=== PATIENT | male | born 1950 | race Caucasian/White ===

== ENCOUNTER 2020-10-27 10:32 | Emergency (ER) | payer BC, OTHER ==
--- OUTSIDE RECORDS SUMMARY | 2020-10-27 10:35 | XMS REPORT | Continuity of Care Document ---
:1950 Author Organization [facility] t Address [address] [place] [address] Dr. Corbett [address] [place] [id number] Care Team Providers Name Role Phone Lizz Rodas Attending Clinician David Trent MD Attending Clinician Problems This patient has no known problems. Allergies, Adverse Reactions, Alerts This patient has no known allergies or adverse reactions. Medications This patient has no known medications. Procedures This patient has no known procedures. Encounters Start End Encounter Admission Attending Care Care Encounter Source Date/Time Date/Time Type Type Clinicians Facility Department ID 2020-10-24 2020-10-24 Telephone BOAZ Price [id number] 00:00:00 00:00:00 [facility] [id number] Surgical [id number] Specialti [id number] es 198 [place] 2020-10-23 2020-10-23 [place] [facility] [id number] 00:00:00 00:00:00 Aaron Hernandez [facility] [id number] Surgical [id number] Specialti [id number] es 198 [place] 2020-10-16 2020-10-16 [facility] [id number] 14:58:24 23:59:00 Encounter [facility] [id number] Surgical [id number] Specialti [id number] es 809 [place] 2020-10-162020-10-16 Office BOAZ Trent [id number] 14:51:36 15:19:45 Visit [facility] [id number] Surgical [id number] Specialti [id number] [address] Results This patient has no known results.
[2020-10-27 11:15] LABS: Absolute Lymphocytes (CBC) 1.4 K/uL (0.7-4.9); Basophils % 0.5 % (0-1.3); Hematocrit 41.2 % (39.6-49.0); MPV 6.7 fL (7.6-11.3); RBC Red Blood Cell Count 4.48 M/uL (4.33-5.43)
[2020-10-27 11:21] LABS: Protime INR 1.04
[2020-10-27 11:31] LABS: ALT/SGPT 46 U/L (12-78); AST/SGOT 24 U/L (15-37); Alkaline Phosphatase 49 U/L (45-117); BUN Blood Urea Nitrogen 16 mg/dL (7-18); Bicarbonate 27 mmol/L (21-32); Bilirubin Direct 0.3 mg/dL (0-0.2); Bilirubin Total 0.9 mg/dL (0.2-1.0); Glucose Level 115 mg/dL (74-106); Magnesium 2.2 mg/dL (1.8-2.4); NT PRO-BNP 59 pg/mL (<125); Potassium 3.9 mmol/L (3.5-5.1); Protein, Total 7.4 g/dL (6.4-8.2); Sodium Level 143 mmol/L (136-145); Troponin (Emerg Dept Use Only) < 0.02 ng/mL (0.0-0.045)
--- NOTE | 2020-10-27 11:41 | RAD REPORT ---
EXAM DESCRIPTION: April Single View10/27/2020 11:16 am CLINICAL HISTORY: Cough COMPARISON: 2014 FINDINGS: The lungs appear clear of acute infiltrate. The heart is normal size IMPRESSION: No acute abnormalities displayed
--- NOTE | 2020-10-27 12:45 | EDPHYS ---
Physician Documentation [facility] Name: Willam Jones Age: 70 yrs Sex: Male : 1950 Arrival Date: 10/27/2020 Time: 10:33 Bed 12 Private MD: ED Physician Esau Cárdenas HPI: 10/27 12:42 This 70 yrs old Male presents to ER via Ambulatory with complaints of Cough, jr8 Congestion, Chest Tightness. 12:42 The patient or guardian reports cough, that is intermittent, described as mild. Onset: jr8 The symptoms/episode began/occurred gradually. Severity of symptoms: At their worst the symptoms were mild, in the emergency department the symptoms are unchanged. Modifying factors: The symptoms are alleviated by nothing, the symptoms are aggravated by nothing. Associated signs and symptoms: Pertinent positives: chest pain, with cough. The patient has not experienced similar symptoms in the past. The patient has not recently seen a physician. Historical: - Allergies: 11:18 No Known Allergies; ca1 - PMHx: 11:18 Hypertensive disorder; ca1 - Immunization history:: Client reports receiving the 2nd dose of the Covid vaccine, Client reports receiving the 1st dose of the Covid vaccine, Pneumococcal vaccine is up to date, Flu vaccine is up to date. - Social history:: Smoking status: Patient denies any tobacco usage or history of. ROS: 12:42 Eyes: Negative for injury, pain, redness, and discharge, ENT: Negative for injury, jr8 pain, and discharge, Neck: Negative for injury, pain, and swelling, Abdomen/GI: Negative for abdominal pain, nausea, vomiting, diarrhea, and constipation, Back: Negative for injury and pain, MS/Extremity: Negative for injury and deformity, Skin: Negative for injury, rash, and discoloration, Neuro: Negative for headache, weakness, numbness, tingling, and seizure. 12:42 Cardiovascular: Positive for chest pain, with cough. 12:42 Respiratory: Positive for cough, Negative for dyspnea on exertion, shortness of breath, sputum production, wheezing. Exam: 12:42 Constitutional: This is a well developed, well nourished patient who is awake, alert, jr8 and in no acute distress. Eyes: Pupils equal round and reactive to light, extra-ocular motions intact. Lids and lashes normal. Conjunctiva and sclera are non-icteric and not injected. Cornea within normal limits. Periorbital areas with no swelling, redness, or edema. ENT: Nares patent. No nasal discharge, no septal abnormalities noted. Tympanic membranes are normal and external auditory canals are clear. Oropharynx with no redness, swelling, or masses, exudates, or evidence of obstruction, uvula midline. Mucous membranes moist. Neck: Trachea midline, no thyromegaly or masses palpated, and no cervical lymphadenopathy. Supple, full range of motion without nuchal rigidity, or vertebral point tenderness. No Meningismus. Cardiovascular: Regular rate and rhythm with a normal S1 and S2. No gallops, murmurs, or rubs. Normal PMI, no JVD. No pulse deficits. Respiratory: Lungs have equal breath sounds bilaterally, clear to auscultation and percussion. No rales, rhonchi or wheezes noted. No increased work of breathing, no retractions or nasal flaring. Abdomen/GI: Soft, non-tender, with normal bowel sounds. No distension or tympany. No guarding or rebound. No evidence of tenderness throughout. Back: No spinal tenderness. No costovertebral tenderness. Full range of motion. Skin: Warm, dry with normal turgor. Normal color with no rashes, no lesions, and no evidence of cellulitis. MS/ Extremity: Pulses equal, no cyanosis. Neurovascular intact. Full, normal range of motion. Neuro: Awake and alert, GCS 15, oriented to person, place, time, and situation. Cranial nerves II-XII grossly intact. Motor strength 5/5 in all extremities. Sensory grossly intact. Cerebellar exam normal. Normal gait. Vital Signs: 10:45 BP 146 / 68; Pulse 81; Resp 16 S; Temp 97.3(TE); Pulse Ox 100% on R/A; Weight 102.51 kg ca1 (R); Height 5 ft. 8 in. (172.72 cm); Pain 2/10; 12:10 BP 136 / 72; Pulse 76; Resp 16; Pulse Ox 100% ; ca1 13:10 BP 129 / 89; Pulse 81; Resp 16 S; Pulse Ox 100% on R/A; ca1 10:45 Body Mass Index 34.36 (102.51 kg, 172.72 cm) ca1 MDM: 10:45 Patient medically screened. jr8 12:42 Data reviewed: vital signs, nurses notes, lab test result(s), EKG, radiologic studies, [facility] plain films. Data interpreted: Pulse oximetry: on room air is 100 %. Interpretation: normal. Counseling: I had a detailed discussion with the patient and/or guardian regarding: the historical points, exam findings, and any diagnostic results supporting the discharge/admit diagnosis, lab results, radiology results, the need for outpatient follow up, a family practitioner, to return to the emergency department if symptoms worsen or persist or if there are any questions or concerns that arise at home. ED course: Patient stated that he is feeling well at this time. Hemodynamically stable. No acute EKG findings. Chest x-ray without infiltrate or signs of any other pathology. Cardiac enzymes and the rest of his blood work unremarkable. We will send patient home to follow-up. Knows to come back if worse.. 10/27 10:45 Order name: Basic Metabolic Panel [facility] 10/27 10:45 Order name: CBC with Diff; Complete Time: [facility] 10/27 10:45 Order name: LFT's; Complete Time: [facility] 10/27 10:45 Order name: Magnesium; Complete Time: [facility] 10/27 10:45 Order name: NT PRO-BNP; Complete Time: [facility] 10/27 10:45 Order name: PT-INR; Complete Time: [facility] 10/27 10:45 Order name: Troponin (emerg Dept Use Only); Complete Time: : [facility] 10/27 10:45 Order name: XRAY Chest (1 view); Complete Time: : [facility] 10/27 10:45 Order name: EKG; Complete Time: 10:46 [facility] 10/27 10:45 Order name: Cardiac monitoring; Complete Time: : [facility] 10/27 10:45 Order name: EKG - Nurse/Tech; Complete Time: : [facility] 10/27 10:45 Order name: IV Saline Lock; Complete Time: : [facility] 10/27 10:46 Order name: Basic Metabolic Panel; Complete Time: 11:49 [facility]AL 10/27 10:45 Order name: Labs collected and sent; Complete Time: : [facility] 10/27 10:45 Order name: O2 Per Protocol; Complete Time: 11:05 jr8 10/27 10:45 Order name: O2 Sat Monitoring; Complete Time: 11:05 jr8 Administered Medications: No medications were administered Disposition Summary: 10/27/20 12:44 Discharge Ordered Location: Home jr8 Problem: new jr8 Symptoms: have improved jr8 Condition: Stable jr8 Diagnosis - Cough jr8 - Chest pain, unspecified jr8 Followup: jr8 - With: Private Physician - When: 2 - 3 days - Reason: Recheck today's complaints, Continuance of care, Re-evaluation by your physician Discharge Instructions: - Discharge Summary Sheet jr8 - Nonspecific Chest Pain, Adult jr8 - Cough, Adult jr8 Forms: - Medication Reconciliation Form jr8 - Thank You Letter jr8 - Antibiotic Education jr8 - Prescription Opioid Use jr8 - Work release form ca1 Addendum: 10/28/2020 18:10 Co-signature as Attending Physician, Esau Cárdenas MD I agree with the assessment and k dr plan of care. Signatures: Dispatcher [employer] [facility] Esau Cárdenas MD MD kdr Thaddeus Phillips PA PA jr8 Gillian Newman RN RN ca1 Corrections: (The following items were deleted from the chart) 10/27 12:36 11:25 CORONAVIRUS+ ordered. [facility]
--- NOTE | 2020-10-27 12:45 | ER ---
Nurse's Notes [facility] Name: Willam Jones Age: 70 yrs Sex: Male : 1950 Arrival Date: 10/27/2020 Time: 10:33 Bed 12 Private MD: Diagnosis: Cough;Chest pain, unspecified Presentation: 10/27 10:45 Chief complaint: Patient states: Cough and congestion x 2 days. Chest tightness today. ca1 Denies HX of heart problems. Coronavirus screen: Client denies travel out of the [place] in the last 14 days. congestion, cough unrelated to allergies, Client presents with at least one sign or symptom that may indicate coronavirus-19. Standard/surgical mask placed on the client. Provider contacted for isolation considerations. Ebola Screen: Patient negative for fever greater than or equal to 101.5 degrees Fahrenheit, and additional compatible Ebola Virus Disease symptoms Patient denies exposure to infectious person. Patient denies travel to an Ebola-affected area in the 21 days before illness onset. No symptoms or risks identified at this time. Initial Sepsis Screen: Does the patient meet any 2 criteria? No. Patient's initial sepsis screen is negative. Does the patient have a suspected source of infection? No. Patient's initial sepsis screen is negative. Risk Assessment: Do you want to hurt yourself or someone else? Patient reports no desire to harm self or others. Onset of symptoms was October 27, 2020. 10:45 Method Of Arrival: Ambulatory ca1 10:45 Acuity: SUZIE 3 ca1 Historical: - Allergies: 11:18 No Known Allergies; ca1 - PMHx: 11:18 Hypertensive disorder; ca1 - Immunization history:: Client reports receiving the 2nd dose of the Covid vaccine, Client reports receiving the 1st dose of the Covid vaccine, Pneumococcal vaccine is up to date, Flu vaccine is up to date. - Social history:: Smoking status: Patient denies any tobacco usage or history of. Screenin:18 Abuse screen: Denies threats or abuse. Denies injuries from another. Nutritional ca1 screening: No deficits noted. Tuberculosis screening: No symptoms or risk factors identified. Fall Risk IV access (20 points). Assessment: 11:18 General: Appears in no apparent distress. comfortable, Behavior is calm, cooperative, ca1 appropriate for age. Pain: Complains of pain in chest Pain does not radiate. Pain currently is 2 out of 10 on a pain scale. Quality of pain is described as tightness Pain began 4 hours ago. Is intermittent. Neuro: Level of Consciousness is awake, alert, obeys commands, Oriented to person, place, time, situation. Cardiovascular: Heart tones S1 S2 present Capillary refill < 3 seconds Patient's skin is warm and dry. Rhythm is sinus rhythm. Respiratory: Airway is patent Respiratory effort is even, unlabored, Respiratory pattern is regular, symmetrical, Breath sounds are clear bilaterally. GI: Abdomen is round non-distended, Bowel sounds present X 4 quads. Abd is soft and non tender X 4 quads. : No signs and/or symptoms were reported regarding the genitourinary system. EENT: No signs and/or symptoms were reported regarding the EENT system. Derm: Skin is intact, is healthy with good turgor, Skin is pink, warm \T\ dry. Musculoskeletal: Circulation, motion, and sensation intact. Capillary refill < 3 seconds. 12:10 Reassessment: Patient appears in no apparent distress at this time. Patient and/or ca1 family updated on plan of care and expected duration. Pain level reassessed. Patient is alert, oriented x 3, equal unlabored respirations, skin warm/dry/pink. 13:10 Reassessment: Patient appears in no apparent distress at this time. Patient is alert, ca1 oriented x 3, equal unlabored respirations, skin warm/dry/pink. Patient states symptoms have improved. Vital Signs: 10:45 BP 146 / 68; Pulse 81; Resp 16 S; Temp 97.3(TE); Pulse Ox 100% on R/A; Weight 102.51 kg ca1 (R); Height 5 ft. 8 in. (172.72 cm); Pain 2/10; 12:10 BP 136 / 72; Pulse 76; Resp 16; Pulse Ox 100% ; ca1 13:10 BP 129 / 89; Pulse 81; Resp 16 S; Pulse Ox 100% on R/A; ca1 10:45 Body Mass Index 34.36 (102.51 kg, 172.72 cm) ca1 ED Course: 10:33 Patient arrived in ED. as 10:42 Gillian Newman, BERNADETTE is Primary Nurse. ca1 10:45 Thaddeus Phillips PA is PHCP. jr8 10:45 Esau Cárdenas MD is Attending Physician. jr8 11:05 Patient has correct armband on for positive identification. Placed in gown. Bed in low ca1 position. Call light in reach. Side rails up X2. reception manager on. Pulse ox on. NIBP on. Warm blanket given. 11:05 No provider procedures requiring assistance completed. Initial lab(s) drawn, by me, ca1 sent to lab. Inserted saline lock: 22 gauge in right forearm, using aseptic technique. Blood collected. Patient maintains SpO2 saturation greater than 95% on room air. 11:16 XRAY Chest (1 view) In Process Unspecified. EDMS 11:16 Triage completed. ca1 11:18 Arm band placed on right wrist. ca1 13:10 IV discontinued, intact, bleeding controlled, No redness/swelling at site. Pressure ca1 dressing applied. Administered Medications: No medications were administered Outcome: 12:44 Discharge ordered by . jr8 13:10 Discharged to home ambulatory. ca1 13:10 Condition: stable 13:10 Discharge instructions given to patient, Instructed on discharge instructions, follow up and referral plans. Demonstrated understanding of instructions, follow-up care. 13:11 Patient left the ED. ca1 Signatures: Dispatcher [employer] EDMS Shruti Mora Josh, PA PA jr8 Gillian Newman, RN RN ca1
[2020-10-27 13:29] VITALS: TEMP 97.3; O2SAT 100
[2020-10-27 13:33] VITALS: BP 129/89
--- NOTE | 2020-10-29 08:04 | EKG ---
Test Date: 2020-10-27 Test Time: 10:49:32 [facility]: [facility] MEASUREMENT RESULTS: Intervals: Rate: 71 IL: 164 QRSD: 132 QT: 408 QTc: 443 [place]: P: 61 IL: 164 QRS: 26 T: 17 INTERPRETIVE STATEMENTS: Normal sinus rhythm Right bundle branch block Abnormal ECG Compared to ECG 12/10/1996 17:54:00 Right bundle-branch block now present Electronically Signed On 10-29-20 08:00:43 CDT by Stuart Angel
== END 2020-10-27 13:11 | disposition home or self-care (01) ==
LOC: ER 10:32
DX: U07.1 COVID-19 (principal); R07.9 Chest pain, unspecified; I10 Essential (primary) hypertension
CPT/HCPCS: 93005; 85025; 80048; 36415; 83735; 85610; 80076; 84484; 83880; 71045; 99285; U0003